=== PATIENT | male | born 1995 | race Caucasian/White ===

== ENCOUNTER 2023-10-20 09:45 | Emergency (ER) | payer OTHER, SELFPAY ==
[2023-10-20 09:46] VITALS: BP 123/84; PULSE 89; RESP 18; TEMP 36.8; O2SAT 100; BMI 25.4
--- NOTE | 2023-10-20 09:48 | ECG_ITS ---
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 Measurements Intervals [place] Rate: 61 P: 60 [place]: 158 QRS: 64 QRSD: 111 T: 57 QT: 393 QTc: 396 Interpretive Statements SINUS RHYTHM MODERATE INTRAVENTRICULAR CONDUCTION DELAY [110+ ms QRS DURATION] No previous ECG available for comparison Electronically Signed On 10-20-2023 14:11:01 CDT by David Head M.D. [id number] f
--- NOTE | 2023-10-20 09:48 | XR_ITS ---
WS: [id number] XR chest 1V portable [id number] REASON FOR EXAM: syncope FINDINGS: Normal thoracic aorta. Normal heart size. Calcified granulomas disease bilaterally. No acute or subacute pulmonary parenchymal or pleural abnormality. Bony thorax is intact without significant abnormality. XR/XR chest 1V portable [id number] IMPRESSION: No acute or subacute chest abnormality.
--- NOTE | 2023-10-20 09:53 | ED_ITS ---
HPI - Syncope 2 General: Chief Complaint: Syncope Stated Complaint: syncope Time Seen by Provider: 10/20/23 09:46 Source: patient and EMS Mode of arrival: EMS Limitations: no limitations History of Present Illness: 28-year-old male who is here with EMS af ter having a syncopal event at work. EMS states that his heart rate was in the 30s when they arrived gave him a dose of atropine. He denies any chest pain or headache before or after the event. He had no vomiting or diarrhea no history of any heart problems. Associated symptoms: Deny abdominal pain, chest pain, fever(s), headache(s) or nausea Review of Systems 2 Const: Denies: fever(s), chills, body aches or change in appetite ENMT: Denies: throat pain or dental pain Card: Reports: syncope; Denies: chest pain Resp: Denies: dyspnea GI: Denies: abdominal pain, nausea, vomiting or diarrhea Musc: Denies: neck pain or back pain Skin/Breast: Denies: rash Neuro: Denies: headache(s) Physical Exam 2 Const: COMMON NORMALS: no acute distress, patient oriented x3 and healthy appearing HENMT: COMMON NORMALS: normocephalic and atraumatic HEAD & SCALP: n ormocephalic and atraumatic Eye: COMMON NORMALS: conjunctivae normal CONJUNCTIVA: Yes conjunctivae normal Neck/C-Spine: COMMON NORMALS: full ROM and supple Chest: COMMONS NORMALS: normal inspection of the chest Resp: COMMON NORMALS: normal respiratory effort, No retractions, No use of accessory muscles and clear to auscultation bilaterally AUSCULTATION: clear to auscultation bilaterally Cardio: COMMON NORMALS: regular rate, regular rhythm and No murmurs present (Cardio) RATE: regular rate RHYTHM: regular rhythm Extremity: COMMON NORMALS: normal to inspection and full ROM Neuro: COMMON NORMALS: patient oriented x3, moves all extremities and no focal motor deficits Psych: COMMON NORMALS: mental status grossly normal, Normal thought process present and cooperative THOUGHT PROCESS: Normal thought process present Skin: COMMON NORMALS: no rashes or lesions noted and no wounds GENERAL SKIN EXAM: no rashes or lesions noted Course 2 Vital Signs: Vital signs: Vital Signs Temperature 98.3 F 10/20/23 09:46 Pulse Rate 60 10/20/23 11:08 Respiratory Rate 18 10/20/23 09:46 Blood Pressure 120/84 10/20/23 11:08 Pulse Oximetry 100 10/20/23 11:08 Oxygen Delivery Me thod Room Air 10/20/23 11:08 MDM - Syncope Medical Decision Making Patient presents here after a syncopal event he has been well-appearing here he had no bradycardia here he had some slight low magnesium to give him a dose of magnesium troponins are negative he has been well-appearing here he is stable for discharge he is to follow-up with his PCP and return if worsening. Medical Records I reviewed the patient's medical records. Lab Data I reviewed the patient's lab results. 10/20/23 10:39 10/20/23 10:39 Radiology Impressions Chest X-Ray 10/20/23 09:48 IMPRESSION: No acute or subacute chest abnormality. Laboratory Results WBC 9.84 10^3/uL (3.29-11.43) 10/20/23 10:39 RBC 4.67 10^6/uL (3.85-5.65) 10/20/23 10:39 Hgb 13.80 g/dL (11.27-16.99) 10/20/23 10:39 Hct 40.8 % (37-53) 10/20/23 10:39 MCV 87.4 fl (82-101) 10/20/23 10:39 MCH 29.6 pg (27-33) 10/20/23 10:39 MCHC 33.8 g/dL (30-55) 10/20/23 10:39 RDW 13.0 % (12.1-15.1) 10/20/23 10:39 Plt Count 186 10^3/cmm (157-399) 10/20/23 10:39 MPV 11.0 fL (7.4-10.4) H 10/20/23 10:39 Neut % (Auto) 76.2 % 10/20/23 10:39 Lymph % (Auto) 16.3 % 10/20/23 10:39 [place] % (Auto) 5.8 % 10/20/23 10:39 Eos % (Auto) 1.1 % 10/20/23 10:39 Baso % (Auto) 0.3 % 10/20/23 10:39 Neut # (Auto) 7.50 10^3/uL (1.8-7.7) 10/20/23 10:39 Lymph # (Auto) 1.6 10^3/uL (0.8-4.8) 10/20/23 10:39 [place] # (Auto) 0.6 10^3/uL (0.2-0.9) 10/20/23 10:39 Eos # (Auto) 0.1 10^3/uL (0.0-0.8) 10/20/23 10:39 Baso # (Auto) 0.0 10^3/uL (0.0-0.1) 10/20/23 10:39 Nucleated RBC % (auto) 0 % 10/20/23 10:39 Nucleated RBCs # 0.0 /100WBC 10/20/23 10:39 Sodium 135 mmol/L (136-145) L 10/20/23 10:39 Potassium 4.9 mmol/L (3.5-5.1) 10/20/23 10:39 Chloride 103 mmol/L (98-107) 10/20/23 10:39 Carbon Dioxide 23 mmol/L (22-29) 10/20/23 10:39 Anion Gap 13.9 (5-19) 10/20/23 10:39 BUN 26 mg/dL (6-20) H 10/20/23 10:39 Creatinine 1.1 mg/dL (0.7-1.2) 10/20/23 10:39 GFR Calculation 79.1 mL/min (90-130) L 10/20/23 10:39 Glucose 101 mg/dL (65-115) 10/20/23 10:39 Calculated Osmolality 285 mOsm/kg (285-295) 10/20/23 10:39 Calcium 8.7 mg/dL (8.5-10.5) 10/20/23 10:39 Magnesium 1.6 mg/dL (1.7-2.3) L 10/20/23 10:39 Total Bilirubin 0.4 mg/dL (0.15-1.2) 10/20/23 10:39 AST 14 U/L (0-40) 10/20/23 10:39 ALT 18 U/L (0-41) 10/20/23 10:39 Alkaline Phosphatase 33 U/L (40-130) L 10/20/23 10:39 Troponin T Baseline < 6 ng/L (0-15) 10/20/23 10:39 Troponin T 120 Minute 6.00 ng/L (0-15) 10/20/23 12:40 Delta Troponin T 0.80465 ABS# (0-10) 10/20/23 12:40 Total Protein 6.3 g/dL (6.6-8.7) L 10/20/23 10:39 Albumin 4.3 g/dL (3.5-5.2) 10/20/23 10:39 Globulin 2.0 g/dL (1.3-4.6) 10/20/23 10:39 All radiology interpretation(s) finalized by discharge EKG Data EKG 1: I personally reviewed and interpreted this EKG as follows: EKG interpretation date: 10/20/23 EKG interpretation time: 09:48 Interpretation: nsr hr [address] elevation qrs 111 qtc 395 EKG 2: I personally reviewed and interpreted this EKG as follows: EKG interpretation date: 10/20/23 EKG interpretation time: 11:54 Interpretation: sinus chio hr [address] or t wave abnormalities qrs 110 qtc 398 Discharge Plan Discharge Patient Disposition: Home Clinical Impression: Syncope Condition: Stable Prescriptions: No Action Men's Multi-Vitamin Tablet 1 tab PO DAILY creatine monohydrate Powder 1 ea PO DAILY whey Powder 1 ea PO DAILY Fish Oil 1,000 mg (120 mg-180 mg) Capsule 1 cap PO DAILY Discharge Orders: Discharge ED (Routine); Ordered 10/20/23 Ordered By: Greg Grijalva Referrals: Randi Coronado MD [Primary Care Provider] - 1-3 days Discharge Diet: Advance as tolerated Discharge Activity: Resume usual activity Patient Instructions: Syncope (ED) Coding Level of Care Code ED Aviation Medicine Specialist for Malika Gibson
[2023-10-20] MEDS: sodium chloride 0.9% 1,000 ML 999 ML IV (10:09)
[2023-10-20 10:52] LABS: Basophils % 0.3 %; Eosinophils # 0.1 10^3/uL (0.0-0.8); Eosinophils % 1.1 %; Hematocrit 40.8 % (37-53); Lymphocytes # 1.6 10^3/uL (0.8-4.8); Lymphocytes % 16.3 %; Mean Corpuscular HGB Conc 33.8 g/dL (30-55); Mean Corpuscular Hemoglobin 29.6 pg (27-33); Mean Corpuscular Volume 87.4 fl (82-101); Monocytes # 0.6 10^3/uL (0.2-0.9); Monocytes % 5.8 %; Neutrophils % 76.2 %; Nucleated Red Blood Cells % 0 %; Platelet Count 186 10^3/cmm (157-399); Red Blood Count 4.67 10^6/uL (3.85-5.65); White Blood Count 9.84 10^3/uL (3.29-11.43)
[2023-10-20 11:04] LABS: Troponin(5th) Baseline < 6 ng/L (0-15)
[2023-10-20 11:07] LABS: Alanine Aminotransferase 18 U/L (0-41); Albumin Level 4.3 g/dL (3.5-5.2); Alkaline Phosphatase 33 U/L (40-130); Anion Gap 13.9 (5-19); Aspartate Amino Transferase 14 U/L (0-40); Blood Urea Nitrogen 26 mg/dL (6-20); Calcium 8.7 mg/dL (8.5-10.5); Carbon Dioxide 23 mmol/L (22-29); Chloride 103 mmol/L (98-107); Creatinine Clr Calc Pharmacy 106.3952; Glomerular Filtration Rate 79.1 mL/min (90-130); Glucose 101 mg/dL (65-115); Magnesium 1.6 mg/dL (1.7-2.3); Osmolality Calculated 285 mOsm/kg (285-295); Potassium 4.9 mmol/L (3.5-5.1); Sodium 135 mmol/L (136-145); Total Bilirubin 0.4 mg/dL (0.15-1.2); Total Protein 6.3 g/dL (6.6-8.7)
[2023-10-20 11:08] VITALS: BP 120/84; PULSE 60; O2SAT 100
[2023-10-20] MEDS: magnesium sulfate premix 1 GM/100 ML PIGGYBACK IV (11:42)
--- NOTE | 2023-10-20 11:53 | ECG_ITS ---
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 Measurements Intervals [place] Rate: 59 P: 65 [place]: 192 QRS: 71 QRSD: 110 T: 60 QT: 399 QTc: 396 Interpretive Statements SINUS BRADYCARDIA Compared to ECG 10/20/2023 09:48:58 Sinus rhythm no longer present Intraventricular conduction delay no longer present Electronically Signed On 10-20-2023 14:17:20 CDT by David Head M.D. [email or web address] lake [id number]
[2023-10-20 13:05] LABS: Troponin 5 2HR Delta 0.00001 ABS# (0-10)
[2023-10-20 13:11] VITALS: BP 115/70; PULSE 99; O2SAT 98
== END 2023-10-20 13:35 | disposition home or self-care (01) ==
PROVIDERS: Emergency Provider Emergency Medicine; PCP Family Medicine
DX: R55 Syncope and collapse (principal); R00.1 Bradycardia, unspecified; E83.42 Hypomagnesemia
CPT/HCPCS: 36415; 71045; 80053; 83735; 84484; 85025; 93005; 96361; 96374; 99285; J3475; J7030